=== PATIENT | female | born 1990 | race Asian ===

== ENCOUNTER → 2016-08-14 | Outpatient (CLI) | payer OTHER ==
--- NOTE | 2016-08-14 15:41 | US ---
August 14, [address] Floyd, Thank you for allowing us to see your patient regarding prior IUGR/IUFD. As you know she is a 26 yea r-old 2, para 0. Her due date is 09/05/16 which is based on early dating criteria. Her curren t gestational age based on this dating is 36 weeks 6 days. She was seen previously for the same. Number of fetuses: 1 Placental location: posterior no previa presentation: vertex Cervix: suboptimal MELISSA of 11.4 cm Measurements: Biparietal diameter: 94 mm 38 weeks, 2 days Head circumference: 339 mm 39 weeks, 0 days Abdominal circumference: 325 mm 36 weeks, 4 days Femur length: 71 mm 36 weeks, 3 days Humerus length: 59* mm 34 weeks, 0 days Average ultrasound age: 37 weeks, 4 days Estimated weight: 3062 gm weight percentile: 57 % ANATOMY anatomy was previously assessed. Today the following structures were visualized and appeared n ormal: Profile, heart rate 158 bpm, stomach, bladder, right left kidneys. Impression: This is a 26 year-old, 2, para 0010at 36 weeks, 6 days gestation. 1. SIUP with biometry at the 57% for gestational age. Nl fluid and limited anatomy. 2. I was delighted to release John from high risk care today and she will awaiting labor onset for roberto guillaume ! Thank you for allowing me to see your patient. Approximately 15 minutes was spent with the patient a nd 10 was spent discussing her issues. Destiny Caldwell MD Perinatologist Division of Maternal Medicine Department of Obstetrics and Gynecology [facility]
--- NOTE | 2016-08-14 18:12 | US ---
Follow Up Obstetrical Sonography Clinical History: 26-year-old female with a prior history of intrauterine growth restriction and intr auterine demise, presenting for follow-up of biometry. TECHNIQUE: A curvilinear 5 MHz transducer was used to sonographically evaluate the fetus and the plac enta. M-Mode Doppler is used. 3-D reformatted imaging through the face are provided. A cine cli p through the 4 chambered heart is also obtained. Dr. Destiny Caldwell is present. LMP: November 30, 2015, indicating an age of 36 weeks 6 days, and estimated date of delivery of September 05, 2016. Comparison Studies: Obstetrical sonography, dated 06/12/2016 and 07/17/2016. FINDINGS: Again, there is a single viable intrauterine gestation. The fetus is currently cephalic in presentation. The placenta is posteriorly-situated, with no evidence of previa. The maternal cervix i s suboptimally assessed because of shadowing from the head. The amniotic fluid volume is approp riate, with an index of 11.4 cm and a maximal vertical pocket of 4.8 cm. The heart rate is 158 bpm. The anatomic survey has been performed in the past, and on today's study the facial profil e, four-chambered heart, stomach, right and left kidneys, and the urinary bladder are identified. biometry is as follows: The biparietal diameter is 94 mm, corresponding to an age of 38 weeks 2 days +/- 3 weeks 2 days, whic h is at the 92nd percentile. Head circumference is 339 mm corresponding to an age of 39 weeks 0 days +/- 2 weeks 5 days, which is at the 75th percentile. The abdominal circumference is 325 mm, corresponding to an age of 36 weeks 4 days +/- 3 weeks 1 day, which is at the 51st percentile. The femur length is 71 mm, corresponding to an age of 36 weeks 3 days +/- 3 weeks 1 day, which is at the 36th percentile. The humeral length is 59 mm corresponding to an age of 34 weeks 0 days, and the composite gestational age based on the above parameters is 37 weeks 4 days, which is concordant with menstrual dating. The estimated weight is 3062 grams +/- 447 grams, which is 6 lbs. 12 oz. +/- 16 ounces, which i s at the 57th percentile. The head circumference to abdominal circumference ratio is normal, measuring 1.04. The femur length t o biparietal diameter ratio is normal measuring 75%, and the femur length to abdominal circumference ratio is normal, measuring 22%. IMPRESSION: There is a single viable intrauterine gestation with no overt structural anomaly trejo ving a normal amniotic fluid volume and an appropriate interval growth with an estimated weight currently at the 57th percentile. Please also refer to Dr. Caldwell's separate assessments and specific recommendations for follow-up.
== END ==
LOC: FIMAGING 14:29
PROVIDERS: ATTEND Obstetrics & Gynecology
DX: Z34.83 Encounter for supervision of other normal pregnancy, third trimester (principal); Z3A.36 36 weeks gestation of pregnancy

== ENCOUNTER → 2019-01-15 | Outpatient (CLI) | payer OTHER | LOC: FIMAGING 14:20 ==